=== PATIENT | female | born 1980 | race Caucasian/White ===

== ENCOUNTER 2019-01-04 16:46 | Inpatient (IN) | payer BC ==
[2019-01-04] MEDS ORDERED: ceFOXitin 2 GM IVPREMIX* 2 GM/50 ML BAG IVPB ONE (16:56)
[2019-01-04] MEDS ORDERED: Sodium Citrate/Citric Acid* 15 ML UDC PO ONE (16:56)
[2019-01-04] MEDS ORDERED: Lactated Ringers 1000 ML Bag* 1,000 ML IV ONE (16:56)
[2019-01-04] MEDS ORDERED: Buffered Lidocaine 1% SYRIN* 1 ML/SYRINGE INTRADERM ONE (16:56)
[2019-01-04] MEDS ORDERED: Lactated Ringers 1000 ML Bag* 1,000 ML IV SCH ×2 (17:00→21:00)
[2019-01-04 18:41] LABS: ABS Eosinophils 0.2 10^3/ul (0-0.6); ABS Lymphocytes 1.8 10^3/ul (1.0-4.8); ABS Monocytes 0.7 10^3/ul (0-0.8); ABS Neutrophils 4.8 10^3/ul (1.5-7.7); Eosinophil % 2.1 %; Hematocrit 32 % (35-47); Lymphocyte % 23.7 %; Mean Corpuscular HGB Conc 34 g/dL (31-36); Mean Corpuscular Hemoglobin 30 pg (27-31); Mean Corpuscular Volume 88 fL (80-97); Mean Platelet Volume 9.2 fL (7.4-10.4); Platelet Count 241 10^3/uL (150-450); Red Blood Count 3.61 10^6 /uL (3.70-4.87); Red Cell Distribution Width 14 % (10-15); White Blood Count 7.5 10^3/uL (3.5-10.8)
[2019-01-04 18:53] LABS: Urine Benzodiazepine Screen None Detected (None Detect); Urine Opiates Screen None Detected (None Detect)
--- NOTE | 2019-01-04 18:56 | HP ---
General Information - Reason for Visit elevated blood pressure / proteinuria / excess weight gain noted in office today - General Information Maternal Age: 38 Grav: 3 Para: 2 SAB: 0 IEA: 0 Estimated Due Date: 01/19/19 Determined By: Early Ultrasound Maternal Blood Type and Rh: O Positive - Results this Serology/RPR Result: Non-Reactive Rubella Result: Immune HBsAg Result: Negative HIV Result: Negative GBS Culture Result: Positive Past Medical History Delivery History: Hx C/Section Pertinent Past Medical History: See Records Pertinent Past Surgical History: See Records - pt with significant adhesive disease at last section Pertinent Family History: See Records - Antepartal Records Antepartal Records: Reviewed, Complicated by: - new onset hypertension Review of Systems Constitutional: Comfortable CV Complaint: No Respiratory: Shortness of Breath: No Gastrointestinal: No Nausea/Vomiting Genitourinary: No Bleeding, No Leaking Fluid Musculoskeletal: No Complaint Neurological: Blurred Vission - pt noted some visual spots when asked Exam Allergies/Adverse Reactions: Allergies Penicillins Allergy (Verified 01/04/19 15:33) Hives sulfamethoxazole [From Bactrim] Allergy (Verified 01/04/19 15:33) Vomiting trimethoprim [From Bactrim] Allergy (Verified 01/04/19 15:33) Vomiting Lab Values - Entire Visit: Laboratory Tests 01/04/19 01/04/19 01/04/19 17:30 17:30 17:30 WBC TNP RBC TNP Hgb TNP Hct TNP MCV TNP MCH TNP MCHC TNP RDW TNP Plt Count TNP MPV TNP Neut % (Auto) TNP Lymph % (Auto) TNP [place] % (Auto) TNP Eos % (Auto) TNP Baso % (Auto) TNP Absolute Neuts (auto) TNP Absolute Lymphs (auto) TNP Absolute Monos (auto) TNP Absolute Eos (auto) TNP Absolute Basos (auto) TNP Absolute Nucleated RBC TNP Nucleated RBC % TNP Sodium TNP Potassium TNP Chloride TNP Carbon Dioxide TNP Anion Gap TNP BUN TNP Creatinine TNP Est GFR ( Amer) TNP Est GFR (Non-Af Amer) TNP BUN/Creatinine Ratio TNP Glucose TNP Calcium TNP Total Bilirubin TNP AST TNP ALT TNP Alkaline Phosphatase TNP Total Protein TNP Albumin TNP Globulin TNP Albumin/Globulin Ratio TNP Blood Type O Positive 01/04/19 18:23 WBC 7.5 RBC 3.61 L Hgb 11.0 L Hct 32 L MCV 88 MCH 30 MCHC 34 RDW 14 Plt Count 241 MPV 9.2 Neut % (Auto) 64.8 Lymph % (Auto) 23.7 [place] % (Auto) 9.0 Eos % (Auto) 2.1 Baso % (Auto) 0.4 Absolute Neuts (auto) 4.8 Absolute Lymphs (auto) 1.8 Absolute Monos (auto) 0.7 Absolute Eos (auto) 0.2 Absolute Basos (auto) 0.0 Absolute Nucleated RBC 0.0 Nucleated RBC % 0.0 Sodium Potassium Chloride Carbon Dioxide Anion Gap BUN Creatinine Est GFR ( Amer) Est GFR (Non-Af Amer) BUN/Creatinine Ratio Glucose Calcium Total Bilirubin AST ALT Alkaline Phosphatase Total Protein Albumin Globulin Albumin/Globulin Ratio Blood Type - Measurements Height: 5 ft 2 in Weight: 214 lb Weight in lbs: [phone] Body Mass Index (BMI): 39.1 Pre- Weight: 165 lb Weight Gained This : 49 lbs and 0 ozs - Exam Breast: Breast Exam Deferred CVA: No CVA Tenderness Extremities: Edema - 3 + Heart: Normal Rhythm/Heart Sounds HEENT: No Significant Findings Lungs: Clear Bilaterally Rectal: Rectal Exam Deferred Reflexes: DTR 2+ Thyroid: No Thyromegaly - Abdominal Exam Abdomen Exam: Non-Tender, Fundal Height Consistent with Dates Targeted Exam Findings See L&D Outpatient Visit Provider Note for Findings: N/A Presenting Part: Vertex Membrane Status: Intact EFM Findings - External Monitor Findings Baseline Heart Rate: 140 External Monitor Findings: Accelerations Present, Variability Moderate Contractions: Irregular, Mild, < 45 Seconds Assessment/Plan - Assessment preeclampsia at 37= 6 weeks with planned section and bilateral tubal ligation D/w pt risks including failed tubal due to adhesive disease / possible injury of bladder for the same reason . also riosk of infrection bleeding and injury to other organs . questions answered labs reviewed and cbc is normal risk of rds discussed vs alternative of waiting and potential risks with worsening preeclampsia - Obstetrical Risk Factors Obstetrical Risk Factors: GBS Positive, Obesity, PreEclampsia - Plan Plan: Expedite C/S Delivery
[2019-01-04] MEDS ORDERED: ceFOXitin(*) 2 GM in NS 0.9% 100 ML* 100 ML IVPB ONE (19:00)
[2019-01-04 19:07] LABS: Albumin 3.4 g/dL (3.2-5.2); Calcium 8.4 mg/dL (8.6-10.3); Potassium 4.2 mmol/L (3.5-5.0); Total Bilirubin 0.7 mg/dL (0.2-1.0)
[2019-01-04 19:13] LABS: Albumin/Globulin Ratio 1.3 (1-3); BUN/Creatinine Ratio 10.4 (8-20); EGFR Non-African American 83.5 (>60); Globulin 2.7 g/dL (2-4); Total Protein 6.1 g/dL (6.4-8.9)
[2019-01-04] MEDS ORDERED: Morphine PF AMP (0.5MG/ML)* 5 MG/10 ML AMP ONE (19:25)
[2019-01-04] MEDS ORDERED: Ondansetron INJ* 2 MG/ML VIAL ONE (19:26)
[2019-01-04] MEDS ORDERED: OXYTOCIN* 10 UNITS/ML 1 ML VIAL ONE (19:26)
[2019-01-04] MEDS ORDERED: Dexamethasone IV* 4 MG/ML 1 ML (4 MG) ONE (19:26)
[2019-01-04] MEDS ORDERED: Phenylephrine 40 MCG/ML SYRINGE ONE (20:05)
[2019-01-04] MEDS ORDERED: Methylene Blue 0.5 %* 50 MG/10 ML AMP IV ONE (20:08)
[2019-01-04] MEDS ORDERED: Ketorolac INJ* 30 MG/ML 1 ML VIAL IV PRN (20:14)
[2019-01-04] MEDS ORDERED: fentaNYL* 50 MCG/ML 2 ML VIAL (100 MCG VIAL) IV PRN (20:14)
[2019-01-04] MEDS ORDERED: Acetaminophen IV 1GM/100ML * 1,000 MG/100 ML VIAL IVPB ONE (20:14)
[2019-01-04] MEDS ORDERED: Scopolamine 1.5 mg* PATCH TRANSDERM PRN ×2 (20:14→20:17)
[2019-01-04] MEDS ORDERED: PROCHLORPERAZINE INJ 5 MG/ML 2 ML VIAL IV PRN ×2 (20:14→20:17)
[2019-01-04] MEDS ORDERED: oxyCODONE TAB* 5 MG TAB PO PRN ×2 (20:14→20:17)
[2019-01-04] MEDS ORDERED: Naloxone* 0.4 MG/ML 1 ML VIAL IV PRN ×2 (20:14→20:17)
[2019-01-04] MEDS ORDERED: Nalbuphine* 10 MG/ML 1 ML VIAL IV PRN (20:17)
[2019-01-04] MEDS ORDERED: Ondansetron INJ* 2 MG/ML VIAL IV PRN (20:17)
[2019-01-04] MEDS ORDERED: fentaNYL* 50 MCG/ML 2 ML VIAL (100 MCG VIAL) ONE (20:25)
[2019-01-04] MEDS ORDERED: Acetaminophen TAB* 325 MG PO PRN (20:56)
[2019-01-04] MEDS ORDERED: Witch Hazel PAD* JAR TOPICAL PRN (20:56)
[2019-01-04] MEDS ORDERED: Dibucaine 1% 28.35 GM TUBE PR PRN (20:56)
[2019-01-04] MEDS ORDERED: Glycerin ADULT SUPP PR PRN (20:56)
[2019-01-04] MEDS ORDERED: Ketorolac INJ* 30 MG/ML 1 ML VIAL ONE (20:59)
[2019-01-04] MEDS ORDERED: Oxytocin in LR* 20 UNITS/1,000 ML BAG IVPB SCH (21:00)
--- NOTE | 2019-01-04 22:50 | OP ---
OPERATIVE REPORT: DATE OF OPERATION: 01/04/19 DATE OF : 78 SURGEON: Suman Hanley MD. TOW MOTOR OPERATOR: Dr. Tran. ANESTHESIA: Spinal. PRE-OP DIAGNOSES: Preeclampsia, previous section, and desires permanent sterilization. POST-OP DIAGNOSES: Preeclampsia, previous section, and desires permanent sterilization.pelvic adhesions OPERATIVE PROCEDURES: Low transverse section and bilateral tubal ligation.lysis of adhesions ESTIMATED BLOOD LOSS: 600 cc. SPECIMEN: Includes fallopian tubes. FINDINGS: Include a viable male. Apgars were 9 and 9. Weight was 7 pound and 5 ounces. There were dense pelvic adhesions on the right abdominal sidewall to the uterus and the bladder flap to the anterior uterine wall. There were also normal- appearing fallopian tubes and ovaries. There were some small adhesions to the left ovary on that side. DESCRIPTION OF PROCEDURE: The patient was identified and procedure identified as a low transverse section. The patient was taken to the operating room and prepped and draped in the usual fashion in the left lateral recumbent position under spinal anesthesia. A Pfannenstiel incision was made just above the previous incisions and carried down through fat, fascia, and peritoneum. Care was taken to enter the peritoneum as high as possible and we were able to get into a window of clear peritoneum that way. The bladder was densely adherent anteriorly to the uterus and this was dissected caudally using sharp dissection. Once a good bladder vesicoperitoneal fold was made, then a sharp incision was made in the transverse area along the lower uterine segment and extended laterally using blunt dissection. The above was delivered through the incision with ease. The cord was doubly clamped and cut, and the infant was handed to the awaiting irrigating pump operator. Cord blood was obtained. Placenta delivered manually. The uterus was wiped out with a wet lap sponge. The uterus was brought out through the abdominal incision. The uterine incision was then closed using 0 Polysorb in a running fashion. A second layer was used to imbricate the first layer. Hemostasis was achieved with 0 Vicryl, [id number] sutures. The right fallopian tube was grasped at the fimbriated end and ligated x2 and then excised. Because this was a very small segment of tube, additional uniportal cautery was utilized on this right fallopian tube at the mid portion. The left fallopian tube was grasped at its fimbriated end. There were some adhesions. These were first bovied for hemostasis and then incised through at least the fimbria. The fimbria was grasped with a Arely clamp and ligated x2 and the fimbria was excised on the side. Good hemostasis was verified. The uterus was placed back into the abdominal cavity. Good hemostasis was again verified at the tubal sites and at the low uterine segment, and Interceed was placed in between the low uterine segment and the bladder flap. The peritoneum was then closed using 3-0 Polysorb in a running fashion. Hemostasis was achieved in the subrectus layers. The fascia was closed using 0 Polysorb in a running fashion. Hemostasis was achieved in the subcu. Copious irrigation was utilized and suctioned out. The subcutaneous tissue was closed using 3-0 Vicryl in a simple fashion. Hemostasis was achieved in the skin and the skin was closed with 4-0 Monocryl in a subcuticular fashion. All sponge and instrument counts were correct and the patient returned to the recovery room in stable condition. [id number]/[id number] #: [id number] ALICIA
[2019-01-04] MEDS: Ketorolac INJ* 30 MG/ML 1 ML VIAL IV SCH (23:39)
[2019-01-04] MEDS: Simethicone TAB* 80 MG TAB.CHEW PO SCH (23:39)
[2019-01-04] MEDS: Docusate CAP* 100 MG PO SCH (23:39)
[2019-01-05] MEDS: Ketorolac INJ* 30 MG/ML 1 ML VIAL IV SCH ×4 (03:45→16:10)
[2019-01-05 07:28] LABS: ABS Lymphocytes 1.5 10^3/ul (1.0-4.8); ABS Monocytes 0.8 10^3/ul (0-0.8); ABS Neutrophils 12.6 10^3/ul (1.5-7.7); Hematocrit 28 % (35-47); Hemoglobin 9.6 g/dL (12.0-16.0); Lymphocyte % 10.3 %; Mean Corpuscular HGB Conc 34 g/dL (31-36); Mean Corpuscular Hemoglobin 30 pg (27-31); Mean Corpuscular Volume 89 fL (80-97); Mean Platelet Volume 9.7 fL (7.4-10.4); Platelet Count 252 10^3/uL (150-450); Red Blood Count 3.19 10^6 /uL (3.70-4.87); Red Cell Distribution Width 13 % (10-15); White Blood Count 14.9 10^3/uL (3.5-10.8)
[2019-01-05] MEDS: Acetaminophen TAB* 325 MG PO SCH ×2 (08:37→18:52)
[2019-01-05] MEDS: Simethicone TAB* 80 MG TAB.CHEW PO SCH ×4 (08:59→20:08)
[2019-01-05] MEDS: Docusate CAP* 100 MG PO SCH ×3 (08:59→20:08)
[2019-01-05] MEDS: Ferrous Gluconate TAB* 324 MG TAB PO SCH ×2 (08:59→20:05)
[2019-01-05] MEDS: oxyCODONE/Acetamin 5/325 MG* TAB PO PRN ×3 (12:08→20:09)
[2019-01-05] MEDS ORDERED: Zolpidem TAB* 5 MG PO PRN (21:00)
[2019-01-06] MEDS: Ibuprofen TAB* 600 MG PO PRN ×4 (00:40→18:53)
[2019-01-06] MEDS: Famotidine TAB* 20 MG PO SCH ×2 (00:40→12:44)
[2019-01-06] MEDS: oxyCODONE/Acetamin 5/325 MG* TAB PO PRN ×6 (00:43→23:04)
[2019-01-06] MEDS: Simethicone TAB* 80 MG TAB.CHEW PO SCH ×4 (09:30→21:00)
[2019-01-06] MEDS: Ferrous Gluconate TAB* 324 MG TAB PO SCH ×2 (09:30→21:00)
[2019-01-06] MEDS: Docusate CAP* 100 MG PO SCH ×3 (09:30→21:00)
[2019-01-07] MEDS: Ibuprofen TAB* 600 MG PO PRN ×2 (01:37→08:04)
[2019-01-07] MEDS: oxyCODONE/Acetamin 5/325 MG* TAB PO PRN ×3 (04:05→12:06)
[2019-01-07] MEDS: Docusate CAP* 100 MG PO SCH (08:04)
[2019-01-07] MEDS: Famotidine TAB* 20 MG PO SCH (08:05)
[2019-01-07] MEDS: Simethicone TAB* 80 MG TAB.CHEW PO SCH ×2 (08:05→12:07)
[2019-01-07] MEDS: Ferrous Gluconate TAB* 324 MG TAB PO SCH (08:05)
[2019-01-07 09:21] VITALS: BP 107/71
[2019-01-07] MEDS ORDERED: Scopolamine PATCH Remove* 1 NOTE MISC PATCH OFF ONE (20:15)
[2019-01-07] MEDS ORDERED: Scopolamine PATCH Remove* 1 NOTE MISC PATCH OFF PRN (20:20)
== END 2019-01-07 13:40 | disposition home or self-care (01) | DRG 540 ==
LOC: MCHOBOUT 16:46 → MCHOB 17:07
PROVIDERS: ADMIT Obstetrics & Gynecology; ATTEND Obstetrics & Gynecology
PROC: 10D00Z1 Extraction of Products of Conception, Low, Open Approach (ICD-10-PCS; principal; 2019-01-04)
PROC: 4A1HXCZ Monitoring of Products of Conception, Cardiac Rate, External Approach (ICD-10-PCS; 2019-01-04)
PROC: 0UB70ZZ Excision of Bilateral Fallopian Tubes, Open Approach (ICD-10-PCS; 2019-01-04)
DX: O14.94 Unspecified pre-eclampsia, complicating childbirth (principal); O34.211 Maternal care for low transverse scar from previous cesarean delivery; O99.52 Diseases of the respiratory system complicating childbirth; O99.214 Obesity complicating childbirth; J45.909 Unspecified asthma, uncomplicated; O99.824 Streptococcus B carrier state complicating childbirth; O90.81 Anemia of the puerperium; Z37.0 Single live birth; Z3A.37 37 weeks gestation of pregnancy; Z88.0 Allergy status to penicillin; Z88.1 Allergy status to other antibiotic agents; Z30.2 Encounter for sterilization
CPT/HCPCS: 36415; 80053; 80307; 85025; 86850; 86900; 86901; 88302; A9270-GY; J0694; J1100; J1885; J2405; J2590; J3010